=== PATIENT | female | born 1960 | race Caucasian/White ===

== ENCOUNTER 2016-12-10 06:57 | Day surgery (SDC) | payer BC, OTHER ==
[2016-12-10] MEDS ORDERED: Propofol 200 MG/20 ML SDV ONE ×2 (07:43→08:20)
[2016-12-10] MEDS ORDERED: Lactated Ringers 1,000 ML IV SCH (07:45)
[2016-12-10 09:33] VITALS: BP 140/78
== END 2016-12-10 09:15 | disposition home or self-care (01) ==
LOC: VM.SDS 06:57
PROVIDERS: ATTEND Surgery
DX: Z12.11 Encounter for screening for malignant neoplasm of colon (principal); E11.9 Type 2 diabetes mellitus without complications; K21.9 Gastro-esophageal reflux disease without esophagitis; Z79.4 Long term (current) use of insulin; Z79.82 Long term (current) use of aspirin; Z79.899 Other long term (current) drug therapy; Z88.5 Allergy status to narcotic agent
CPT/HCPCS: 45378; 82962; J2704; J7120